=== PATIENT | male | born 1990 | race Caucasian/White ===

== ENCOUNTER 2018-03-01 02:45 | Emergency (ER) | payer BC ==
--- NOTE | 2018-03-01 03:51 | ER Document Report ---
HPI - HPI Patient complains to provider of: Eye discharge, sinus congestion Pain Level: 5 Context: Patient is a 27-year-old male that comes to the emergency department for chief complaint of irritation and discharge from at first the right eye and then the left eye, this is been going on for the past 2 days, patient also reports that he is beginning to get sinus congestion, he was also started to get a sore throat. He denies fever, cough, vomiting, shortness of breath, headache, or any other symptoms at this time. He smokes. He denies any daily medications. - CONSTITUTIONAL Constitutional: REPORTS: Chills - EENT EENT: REPORTS: Sore Throat. DENIES: Ear Pain, Eye problems - NEURO Neurology: REPORTS: Headache - CARDIOVASCULAR Cardiovascular: DENIES: Chest pain - RESPIRATORY Respiratory: DENIES: Trouble Breathing, Coughing Past Medical History - General Information source: Patient - Social History Smoking Status: Current Every Day Smoker Chew tobacco use (# tins/day): No Smoking Education Provided: Yes - <3 min Frequency of alcohol use: Occasional Drug Abuse: None Lives with: Family Family History: Reviewed & Not Pertinent Patient has suicidal ideation: No Patient has homicidal ideation: No - Medical History Medical History: Negative Renal/ Medical History: Denies: Hx Peritoneal Dialysis Past Surgical History: Reports: Hx Orthopedic Surgery - left hip 2000 - Immunizations Hx Diphtheria, Pertussis, Tetanus Vaccination: Yes Vertical Provider Document - CONSTITUTIONAL General Appearance: WD/WN, No Apparent Distress - HEENT HEENT: Atraumatic, Conjuctival Injection - Bilateral conjunctival injection which is mild, there is a small amount of discolored discharge from the right eye, minimal from the left. Normal pupils, no evidence of foreign body, normal eyelids, normal EOMs., Normocephalic. negative: Normal ENT Exam - Minimal tenderness over the frontal sinuses, no maxillary sinus tenderness, minimal nasal congestion, mild erythema of the posterior pharynx with no tonsil enlargement, normal uvula, normal pharyngeal exam otherwise. Normal oral exam. - NECK Neck: Normal Inspection - RESPIRATORY Respiratory: Breath Sounds Normal, No Respiratory Distress - CARDIOVASCULAR Cardiovascular: Regular Rate, Regular Rhythm - GI/ABDOMEN Gastrointestinal: Abdomen Soft, Abdomen Non-Tender - BACK Back: Normal Inspection - MUSCULOSKELETAL/EXTREMETIES Musculoskeletal/Extremeties: MAEW, FROM, Non-Tender - NEURO Level of Consciousness: Awake, Alert, Appropriate - DERM Integumentary: Warm, Dry, No Rash Course - Re-evaluation Re-evalutation: Patient with sinus symptoms that started today. Most likely viral. Unremarkable oropharyngeal exam. Eye exam is consistent with conjunctivitis that has spread to the left eye as well. Unremarkable exam otherwise. Placing on eyedrops, symptom management, discussed follow-up, smoking cessation, return precautions. Patient states understanding and agreement. Provided with work release. - Vital Signs Vital signs: Temp Pulse Resp BP Pulse Ox 98.5 F 106 H 20 133/80 H 98 03/01/18 02:54 03/01/18 02:54 03/01/18 02:54 03/01/18 02:54 03/01/18 02:54 Discharge - Discharge Clinical Impression: Sinus congestion Conjunctivitis Qualifiers: Conjunctivitis type: unspecified Laterality: bilateral Qualified Code(s): H10.9 - Unspecified conjunctivitis Condition: Stable Disposition: HOME, SELF-CARE Additional Instructions: Your examination is consistent with conjunctivitis, pinkeye, use eyedrops as prescribed to completion. He also has indications of a viral upper respiratory/sinus infection, this should resolve slowly with time, take prescribed medications, drink plenty fluids, stop smoking. Follow-up with primary care. Return for any concerning symptoms including severe headache, spiking fever, difficulty breathing, or any other concerning or worsening symptoms. Prescriptions: Fexofenadine HCl [Mayra Allergy] 180 mg PO DAILY #30 tablet Polymyxin B Sulfate/Tmp [Polytrim Oph Soln 10 ml] 1 dose OP ASDIR PRN #1 bottle PRN Reason: Pseudoephedrine HCl [Sudafed 12 Hour] 120 mg PO Q12 PRN #20 tablet.er PRN Reason: Forms: Return to Work
[2018-03-01 03:57] VITALS: BP 126/73
== END 2018-03-01 03:57 | disposition home or self-care (01) ==
LOC: ER 02:45
DX: H10.9 Unspecified conjunctivitis (principal); R09.81 Nasal congestion; J02.9 Acute pharyngitis, unspecified; R51 Headache; F17.200 Nicotine dependence, unspecified, uncomplicated
CPT/HCPCS: 99283

== ENCOUNTER 2019-02-20 20:45 | Emergency (ER) | payer BC ==
[2019-02-20] MEDS ORDERED: RINGERS SOLUTION,LACTATED 1,000 ML IV ONE ×2 (21:01→22:13)
[2019-02-20] MEDS ORDERED: NALOXONE HCL INJ/PF 0.4 MG/1 ML SDV IV ONE (21:03)
[2019-02-20] MEDS ORDERED: NALOXONE HCL INJ/PF 0.4 MG/1 ML SDV ONE (21:03)
--- NOTE | 2019-02-20 21:04 | ER Document Report ---
ED General - General Chief Complaint: Chest Pain Stated Complaint: UNRESPONSIVE Time Seen by Provider: 02/20/19 20:56 Cannot obtain history due to: Uncooperative, Altered mental status Notes: Patient is a 28-year-old male without chronic medical problems who presents by EMS due to altered mental status. Very difficult to ascertain history as patient is unable to provide meaningful history and EMS is not available at the time of my evaluation. 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 Apparently had drank several beers today but no additional drugs. Had been completely fine prior to the onset of his symptoms. TRAVEL OUTSIDE OF THE [place] IN LAST 30 DAYS: No - Related Data Allergies/Adverse Reactions: No Known Allergies Allergy (Verified 02/21/19 01:03) Past Medical History - General Information source: Emergency Med Personnel, [facility] Records Cannot obtain history due to: Uncooperative, Altered mental status - Social History Smoking Status: Current Every Day Smoker Frequency of alcohol use: Occasional Drug Abuse: None Lives with: Spouse/Significant other Family History: Reviewed & Not Pertinent Renal/ Medical History: Denies: Hx Peritoneal Dialysis Past Surgical History: Reports: Hx Orthopedic Surgery - left hip 2000 - Immunizations Hx Diphtheria, Pertussis, Tetanus Vaccination: Yes Review of Systems - Review of Systems -: Yes ROS unobtainable due to patient's medical condition Physical Exam - Vital signs Vitals: Resp BP Pulse Ox 13 142/90 H 98 02/20/19 20:55 02/20/19 20:55 02/20/19 20:55 Interpretation: Normal Notes: PHYSICAL EXAMINATION: GENERAL: Lethargic, altered, minimally responsive HEAD: Atraumatic, normocephalic. EYES: Pupils equal round and reactive to light, extraocular movements intact, sclera anicteric, conjunctiva are normal. ENT: nares patent, oropharynx clear without exudates. Moderately dry mucous membranes. NECK: supple without lymphadenopathy LUNGS: Breath sounds clear to auscultation bilaterally and equal. No wheezes rales or rhonchi. HEART: Regular tachycardia without murmurs ABDOMEN: Soft, nontender, normoactive bowel sounds. No guarding, no rebound. No masses appreciated. EXTREMITIES: no pitting or edema. No cyanosis. NEUROLOGICAL: No focal neurological deficits. Moves all extremities spontaneously and on command. Unable to follow strength testing commands PSYCH: Lethargic, oriented only to person. SKIN: Warm, Dry, normal turgor, no rashes or lesions noted. Course - Re-evaluation Re-evalutation: 02/20/19 21:01 Patient presents quite lethargic, will wake up to repeated physical or loud verbal stimulation and then falls right back off to sleep. It takes quite a bit of effort to get the patient answer even very basic questions such as his name. He is able to follow commands in all 4 extremities but is unable to comply with formal strength testing. He has no focal deficits on initial exam. No evidence of trauma on exam. History is very limited as the patient cannot provide any but by EMS the patient apparently had been drinking today, "2 beers", and then apparently began complaining of chest pain and slumped to the ground per family who was present but are not available for history taking at this time. Patient's initial vitals are within acceptable limits, mildly hypertensive at 151 systolic, heart rate 93, saturations at 94% on room air. Patient is in guarded condition given undifferentiated nature of his altered mental status and possible syncopal event prior to presentation. I have reassessed the patient on 2 occasions up to this point and his exam remains relatively unchanged. Picture not consistent with narcotic overdose, pupils are not pinpoint, he is not having hypoventilation, but I will administer a dose of naloxone to exclude definitively that this could be part of the picture. Will also obtain labs, CT head and reassess. 02/20/19 21:39 I continue to reassess the patient on 2 separate occasions. Narcan did not provide any relief to the patient's altered mental status. It is very unclear to me what is exactly going on at this time. The patient's mental status changes are very unusual pattern. For example the patient cannot tell me the city that we are currently located in, he likewise cannot tell me the president is, cannot tell me that were in the hospital, but when the nurse tried to administer naloxone to the patient he sat up and asked what medication it was and pulled his arm away when she attempted to administer it. Although this could seem like the patient was trying to avoid administration of this medication because he is using narcotics I do not think that this is the case as it did not do anything to his mental status and his was at the bedside is quite adamant that the patient never uses any kind of drugs of any kind and gets drug tested regularly for his place of work. The patient continues to be nonfocal on his neurologic exam moving all his remedies on command and he has symmetric strength throughout. However he has global confusion at this point has repetitive questioning. CT scan of his head is pending and I have asked that he goes over as soon as possible. Low clinical suspicion for an infectious encephalitis or meningitis as the patient was apparently grilling, and showing a nice day with his family, and then apparently sat down in a chair and stopped responding to general conversation that was going on. When family tapped his shoulder he would open his eyes and breathe very deeply and then almost go back off to sleep. At no point was any kind of tonic-clonic activity noted. The patient would briefly talk when he would wake up or say "what". This would be inconsistent with absent seizures with postictal phase. Very unclear diagnostic picture at this time. 02/20/19 21:59 CT head without contrast unremarkable. CT the head with contrast is pending. Patient is becoming increasingly agitated. 02/20/19 22:11 Documentation delayed as I was at patient's bedside continues the. Patient became extremely agitated, not redirectable, no impact of 4 mg of midazolam IV. Was requiring 6 security guards to maintain patient on the bed. Intramuscular ketamine 500 mg administered. Once the patient is calm and sedated he will be taken over to CT and have a CT with contrast. Carboxy hemoglobin will likewise be added given that he was grilling. 02/21/19 01:13 Patient's mentation has gradually improved. He continues to be quite delayed in his responses to questions but is much more closer to normal orientation than baseline. CSF studies do not demonstrate significant leukocytosis, white count of 4, traumatic tap. Gram stain negative. Will consult with neurology at [facility] 02/21/19 01:44 I did consult with neurology at [facility] Dr. Wick who advises MRI of the brain in the morning that if the patient's mental status improving that he does not require transfer to [facility] at this time. Will discuss with the hospitalist for observation 02/21/19 03:02 Patient has declined observation. States that he would like to go home and to follow-up with his primary doctor. His mother and are both at the bedside and confirmed that the patient is completely at his baseline. He is alert, oriented, has no level of confusion at this time. Is able to state to me that I have a concern that he could have had a focal seizure, but I advised that he stays in the hospital for MRI of his brain and to determine any further a ppropriate testing that may be indicated based on his repeat exam in the morning. He states understanding that this has been formally recommended by the neurologist who I consulted with at [facility]. He states he would like to go home as he would like to rest and eat at home. He states that he likewise would feel more comfortable following up as an outpatient for these tests. He has capacity at this time. This conversation was witnessed by his and mother both of whom are comfortable with the plan. Patient has had complete resolution of his altered mental status as noted above. He will be discharged at his request. - Vital Signs Vital signs: Temp Pulse Resp BP Pulse Ox 18 139/93 H 96 02/21/19 02:01 02/21/19 02:01 02/21/19 02:01 - Laboratory Result Diagrams: 02/20/19 20:15 02/20/19 20:15 Laboratory results interpreted by me: 02/20/19 02/20/19 02/20/19 20:15 20:15 22:43 WBC 11.6 H RDW 14.2 H Carboxyhemoglobin 3.1 H Potassium 3.5 L Glucose 130 H CSF RBC CSF Total Protein 02/20/19 02/20/19 23:08 23:08 WBC RDW Carboxyhemoglobin Potassium Glucose CSF RBC 2950 H CSF Total Protein 88 H - Diagnostic Test Radiology reviewed: Image reviewed, Reports reviewed Radiology results interpreted by me: 02/21/19 02:30 CT head: No acute intercranial bleed or mass - EKG Interpretation by Me Additional EKG results interpreted by me: 02/21/19 02:31 Sinus tachycardia, rate 107, no ST elevations or depressions. QTC is 454. Procedures - Conscious Sedation Conscious sedation Consent obtained: No - Emergent Indication: Lumbar puncture Prior complications: Procedural sedation Normal healthy pt.: P1. - ASA Classification Airway Evaluation: Obese Mallampati Classification: Class 1 Used during procedure: Suction available, IV access obtained, Pulse ox on pt., aadc plans staff officer on pt. Medications administered: Ketamine Reversal agents: None I personally performed/intraservice time: Sedation, Procedure, 30 min or less Complications: No - Lumbar Puncture Lumbar puncture Consent obtained: Yes Lumbar puncture pre-procedure: Sterile PPE donned, Chloraprep applied, Sterile drapes applied Patient position: Lying Needle size: 22 Lumbar puncture location: L4-5 Anesthetic type: 1% Lidocaine mL's of anesthetic: 2 Amount/type of drainage: 1.5 cc bloody/clear Number of attempts: 1 Complications: No Critical Care Note - Critical Care Note Total time excluding time spent on procedures (mins): 95 Comments: Critical care time spent obtaining history from patient or surrogate, discussions with consultants, development of treatment plan with patient or surrogate, evaluation of patient's response to treatment, examination of patient, ordering and performing treatments and interventions, ordering and review of laboratory studies, re-evaluation of patient's condition, ordering and review of radiographic studies and review of old charts Discharge - Discharge Clinical Impression: Agitation, Delirium Altered mental status Qualifiers: Altered mental status type: delirium Qualified Code(s): R41.0 - Disorientation, unspecified Chest pain Qualifiers: Chest pain type: unspecified Qualified Code(s): R07.9 - Chest pain, unspecified Condition: Stable Disposition: HOME, SELF-CARE Additional Instructions: As we discussed, I do not know exactly what caused her symptoms today. The only diagnosis that I can think it would be a potential seizure with a postictal p hase thereafter. Your evaluation today including a CT of your head with and without contrast, lumbar puncture, and broad laboratory evaluations are all unremarkable. I strongly encourage you to follow-up for an MRI of your head and EEG as an outpatient. Please return to the emergency department immediately if you have recurrence of your symptoms, severe headache, fever greater than 100.4 F, weakness, numbness, pass out, or have any other symptoms that are worrisome to you. As we discussed your going home today upon your request as we had desired to hospitalize you to complete the MRI as an inpatient and ensure that you continue to improve clinically.
[2019-02-20] MEDS ORDERED: NALOXONE HCL INJ 2 MG/2 ML DISP.SYRIN ONE (21:12)
[2019-02-20 21:31] LABS: ABSOLUTE BASOPHILS # (AUTO) 0.1 10^3/uL (0.0-0.2); ABSOLUTE EOSINOPHILS # (AUTO) 0.3 10^3/uL (0.0-0.6); ABSOLUTE LYMPHOCYTES (AUTO) 3.1 10^3/uL (0.5-4.7); ABSOLUTE MONOCYTES (AUTO) 0.7 10^3/uL (0.1-1.4); ABSOLUTE NEUT (AUTO) 7.4 10^3/uL (1.7-8.2); BASOPHILS % (AUTO) 0.5 % (0-2); HEMATOCRIT 43.8 % (37.9-51.0); HEMOGLOBIN 14.7 g/dL (13.5-17.0); MEAN CORPUSCULAR HEMOGLOBIN 28.5 pg (27.0-33.4); MEAN CORPUSCULAR HGB CONC 33.6 g/dL (32.0-36.0); MEAN CORPUSCULAR VOLUME 85 fl (80-97); MONOCYTES % (AUTO) 5.9 % (3-13); PLATELET COUNT 246 10^3/uL (150-450); RED BLOOD COUNT 5.16 10^6/uL (4.35-5.55); RED CELL DISTRIBUTION WIDTH 14.2 % (11.5-14.0); SEGMENTED NEUTROPHILS % (AUTO) 63.6 % (42-78); TOTAL CELLS COUNTED % (AUTO) 100 %; WHITE BLOOD COUNT 11.6 10^3/uL (4.0-10.5)
[2019-02-20 21:37] LABS: APPEARANCE,URINE CLEAR; BILIRUBIN,URINE NEGATIVE (NEGATIVE); COLOR,URINE STRAW; GLUCOSE, URINE NEGATIVE (NEGATIVE); KETONES,URINE NEGATIVE (NEGATIVE); LEUKOCYTE ESTERASE,URINE NEGATIVE (NEGATIVE); NITRITE,URINE NEGATIVE (NEGATIVE); PROTEIN,URINE NEGATIVE (NEGATIVE); URINE SPECIFIC GRAVITY 1.008; UROBILINOGEN,URINE NEGATIVE mg/dL (<2.0)
[2019-02-20 21:40] LABS: ALANINE AMINOTRANSFERASE 39 U/L (21-72); ALBUMIN 4.2 g/dL (3.5-5.0); ALCOHOL 30 mg/dL (NONE DETECTED); ALKALINE PHOSPHATASE 68 U/L (38-126); ANION GAP 12 (5-19); ASPARTATE AMINO TRANSFERASE 30 U/L (17-59); BILIRUBIN,DIRECT 0.2 mg/dL (0.0-0.4); BILIRUBIN,TOTAL 0.2 mg/dL (0.2-1.3); BLOOD UREA NITROGEN 10 mg/dL (7-20); CALCIUM 9.3 mg/dL (8.4-10.2); CARBON DIOXIDE 23 mmol/L (22-30); CHLORIDE 105 mmol/L (98-107); CREATINE KINASE 159 U/L (55-170); GLUCOSE 130 mg/dL (75-110); POTASSIUM 3.5 mmol/L (3.6-5.0); SODIUM 140.4 mmol/L (137-145); TOTAL PROTEIN 6.9 g/dL (6.3-8.2)
[2019-02-20 21:40] LABS: URINE AMPHETAMINES SCREEN NEGATIVE; URINE BARBITURATES SCREEN NEGATIVE; URINE BENZODIAZEPINES SCREEN NEGATIVE; URINE COCAINE SCREEN NEGATIVE; URINE MARIJUANA (THC) SCREEN NEGATIVE; URINE METHADONE SCREEN NEGATIVE; URINE PHENCYCLIDINE SCREEN NEGATIVE
[2019-02-20 21:51] LABS: CREATINE KINASE MB 1.16 ng/mL (<4.55)
[2019-02-20 21:52] LABS: TROPONIN I < 0.012 ng/mL
[2019-02-20] MEDS ORDERED: MIDAZOLAM 2 MG/2 ML INJ ONE ×2 (21:57→22:00)
[2019-02-20] MEDS ORDERED: MIDAZOLAM 2 MG/2 ML INJ IV ONE (21:59)
[2019-02-20] MEDS ORDERED: KETAMINE HCL INJ 500 MG/10 ML VIAL ONE ×2 (22:02→22:44)
[2019-02-20] MEDS ORDERED: KETAMINE HCL INJ 500 MG/10 ML VIAL IM ONE (22:13)
--- NOTE | 2019-02-20 22:18 | RADIOLOGY REPORT (SQ) ---
EXAM DESCRIPTION: CT HEAD WITHOUT IV CONTRAST COMPLETED DATE/TME: 02/20/2019 21:00 CLINICAL HISTORY: 28 years, Male, ams COMPARISON: None. TECHNIQUE: Axial images of the head were performed without the use of intravenous contrast, with sagittal and coronal reformatted images. Images stored on PACS. All CT scanners at this facility use dose modulation, iterative reconstruction, and/or weight based dosing when appropriate to reduce radiation dose to as low as reasonably achievable (ALARA). [facility]: Dose Right [facility]: CareDose [facility]: Dose Right [facility]: Teradose 4D [facility]: [employer] Technologies LIMITATIONS: None. FINDINGS: No evidence of acute hemorrhage or infarct. No evidence of mass or hydrocephalus. There is mild left maxillary sinus disease. IMPRESSION: No acute finding. TECHNICAL DOCUMENTATION: Quality ID # [id number]: Final reports with documentation of one or more dose reduction techniques (e.g., Automated exposure control, adjustment of the mA and/or kV according to patient size, use of iterative reconstruction technique) copyright 2011 [employer]- All Rights Reserved
[2019-02-20 22:29] LABS: INTERNATIONAL RATION (INR) 0.93
[2019-02-20 22:30] LABS: PARTIAL THROMBOPLASTIN TIME 34.6 SEC (23.5-35.8)
[2019-02-20] MEDS ORDERED: LIDOCAINE 1% INJ-PF (10 MG/ML) 30 ML SDV ONE (22:46)
--- NOTE | 2019-02-20 22:54 | RADIOLOGY REPORT (SQ) ---
EXAM DESCRIPTION: RadLex: CT HEAD WITH IV CONTRAST CLINICAL HISTORY: 28 years Male; eval mass lesion, abscess? COMPLETED: 02/20/2019 2229 TECHNIQUE: CT head with contrast using 50 mL Omnipaque [address] scans at this facility use dose modulation, iterative reconstruction, and/or weight based dosing when appropriate to reduce radiation dose to as low as reasonably achievable. COMPARISON: Noncontrast CT head 02/20/2019 at 2141 FINDINGS: No enhancing lesions. No acute edema or mass effect. IMPRESSION: 1. Normal postcontrast CT of the brain
[2019-02-20 22:57] LABS: VENOUS BLOOD BASE EXCESS -0.4 mmol/L; VENOUS BLOOD HCO3 24.4 mmol/L (20-32); VENOUS BLOOD PCO2 40.9 mmHg (35-63); VENOUS BLOOD PH 7.39 (7.30-7.42)
--- NOTE | 2019-02-20 23:13 | EKG REPORT ---
SEVERITY:- BORDERLINE ECG - SINUS TACHYCARDIA INFERIOR Q WAVES, PROBABLY NORMAL VARIATION : Confirmed by: Filipe Phelps MD 20-Feb-2019 23:12:52
[2019-02-21 00:02] LABS: APPEARANCE TUBE 1 HAZY; APPEARANCE TUBE 2 HAZY; COLOR TUBE 1 RED; COLOR TUBE 2 RED; CSF TUBE NUMBER 1
[2019-02-21 00:03] LABS: CSF TOTAL VOLUME 1.1 CC; VOLUME TUBE 1 0.6 CC; VOLUME TUBE 2 0.5 CC
[2019-02-21 00:12] LABS: RED BLOOD CELL,CSF 2950 /uL (0-10)
[2019-02-21] MEDS ORDERED: MIDAZOLAM 2 MG/2 ML INJ IV ONE (00:22)
[2019-02-21] MEDS ORDERED: MIDAZOLAM 2 MG/2 ML INJ ONE (00:23)
[2019-02-21 00:24] LABS: GLUCOSE,CSF 64 mg/dL (40-70); PROTEIN,CSF 88 mg/dL (12-60); WHITE BLOOD CELL,CSF 4 /uL (0-5)
[2019-02-21 02:10] VITALS: BP 139/93
== END 2019-02-21 03:05 | disposition home or self-care (01) ==
LOC: ER 20:45
DX: R41.0 Disorientation, unspecified (principal); R07.9 Chest pain, unspecified; R45.1 Restlessness and agitation; F17.200 Nicotine dependence, unspecified, uncomplicated
CPT/HCPCS: 36415; 70450; 70460; 80053; 80307; 81001; 82375; 82550; 82553; 82803; 82945; 84157; 84484; 85025; 85610; 85730; 87070; 87205; 87252; 89050; 93005; 93010; 99291; 99292; 99152

== ENCOUNTER 2019-02-22 14:59 | Emergency (ER) | payer BC ==
[2019-02-22 15:17] VITALS: BP 154/86
--- NOTE | 2019-02-22 23:27 | EKG REPORT ---
SEVERITY:- NORMAL ECG - SINUS RHYTHM : Confirmed by: Luisa Luo MD 22-Feb-2019 23:26:44
== END 2019-02-22 18:49 | disposition left against medical advice (07) ==
LOC: ER 14:59
DX: Z53.21 Procedure and treatment not carried out due to patient leaving prior to being seen by health care provider (principal)
CPT/HCPCS: 93005; 93010

== ENCOUNTER 2019-03-10 10:54 | Emergency (ER) | payer BC ==
--- NOTE | 2019-03-10 11:16 | ER Document Report ---
ED Medical Screen (RME) - General Chief Complaint: Chest Pain Stated Complaint: SHORTNESS OF BREATH/CHEST PAIN Time Seen by Provider: 03/10/19 11:07 Primary Care Provider: DARA WHITLEY FNP [Primary Care Provider] - Follow up as needed Mode of Arrival: Ambulatory Information source: Patient TRAVEL OUTSIDE OF THE [place] IN LAST 30 DAYS: No - HPI Notes: 03/10/19 11:16 Patient is a 28 yr old male that presents to the emergency department for chief complaint of chest pain that started yesterday, substernal and constant, states he does have a sharp pain that lasts for a few seconds that started this morning, reports he has had shortness of breath on exertion that started yesterday as well. Patient is a pack-a-day smoker, patient was recently seen in the ED 3 weeks ago for chest pain, had echo impatient at that time. Echocardiogram showed valve dysfunction, he does have a cardiology follow-up appt on March 24, 2019. Patient denies any foot/ankle swelling. States worse with time. Denies any new medications with her travel. Has not taken anything [id number]. Does not take a baby aspirin. Patient also [facility] ROS: Other than noted above, the 12 point review of systems was reviewed with the patient and were negative, all pertinent findings are included in the HPI. PHYSICAL EXAMINATION: Vital signs reviewed. GENERAL: Well-appearing, well-nourished and in no acute distress. HEAD: Atraumatic, normocephalic. NECK: Normal range of motion CV: Heart regular rate and rhythm LUNGS: No respiratory distress ABD: generalized abd pain Musculoskeletal: Normal range of motion NEUROLOGICAL: Normal speech PSYCH: Normal mood, normal affect. MDM: Patient seen and examined for rapid initial assessment. Vital signs reviewed. A comprehensive ED assessment and evaluation of the patient, analysis of test results and completion of the medical decision making process will be conducted by additional ED providers. *Note is created using voice recognition software and may contain spelling, syntax or grammatical errors. 03/10/19 11:17 - Related Data Allergies/Adverse Reactions: No Known Allergies Allergy (Verified 03/10/19 11:09) Past Medical History Renal/ Medical History: Denies: Hx Peritoneal Dialysis Past Surgical History: Reports: Hx Orthopedic Surgery - left hip 2000 - Immunizations Hx Diphtheria, Pertussis, Tetanus Vaccination: Yes Doctor's Discharge - Discharge Referrals: DARA WHITLEY FNP [Primary Care Provider] - Follow up as needed
[2019-03-10] MEDS ORDERED: ASPIRIN 81 MG TABLET, CHEWABLE PO ONE (11:17)
[2019-03-10 11:40] LABS: ABSOLUTE BASOPHILS # (AUTO) 0.1 10^3/uL (0.0-0.2); ABSOLUTE EOSINOPHILS # (AUTO) 0.4 10^3/uL (0.0-0.6); ABSOLUTE LYMPHOCYTES (AUTO) 2.5 10^3/uL (0.5-4.7); ABSOLUTE MONOCYTES (AUTO) 0.7 10^3/uL (0.1-1.4); ABSOLUTE NEUT (AUTO) 7.8 10^3/uL (1.7-8.2); BASOPHILS % (AUTO) 0.5 % (0-2); EOSINOPHILS % (AUTO) 3.1 % (0-6); HEMOGLOBIN 15.2 g/dL (13.5-17.0); LYMPHOCYTES % (AUTO) 22.2 % (13-45); MEAN CORPUSCULAR HEMOGLOBIN 28.3 pg (27.0-33.4); MEAN CORPUSCULAR HGB CONC 33.8 g/dL (32.0-36.0); MEAN CORPUSCULAR VOLUME 84 fl (80-97); PLATELET COUNT 261 10^3/uL (150-450); RED BLOOD COUNT 5.37 10^6/uL (4.35-5.55); RED CELL DISTRIBUTION WIDTH 14.5 % (11.5-14.0); SEGMENTED NEUTROPHILS % (AUTO) 68.2 % (42-78); TOTAL CELLS COUNTED % (AUTO) 100 %; WHITE BLOOD COUNT 11.4 10^3/uL (4.0-10.5)
[2019-03-10 11:42] LABS: INTERNATIONAL RATION (INR) 0.97; PROTHROMBIN TIME 12.9 SEC (11.4-15.4)
[2019-03-10 11:56] LABS: ALANINE AMINOTRANSFERASE 39 U/L (21-72); ALBUMIN 4.5 g/dL (3.5-5.0); ALKALINE PHOSPHATASE 70 U/L (38-126); ANION GAP 9 (5-19); ASPARTATE AMINO TRANSFERASE 30 U/L (17-59); BILIRUBIN,DIRECT 0.2 mg/dL (0.0-0.4); BILIRUBIN,TOTAL 0.5 mg/dL (0.2-1.3); BLOOD UREA NITROGEN 13 mg/dL (7-20); CALCIUM 9.5 mg/dL (8.4-10.2); CARBON DIOXIDE 25 mmol/L (22-30); CHLORIDE 108 mmol/L (98-107); CREATINE KINASE 313 U/L (55-170); GLUCOSE 135 mg/dL (75-110); POTASSIUM 3.7 mmol/L (3.6-5.0); SODIUM 142.1 mmol/L (137-145); TOTAL PROTEIN 7.5 g/dL (6.3-8.2)
--- NOTE | 2019-03-10 12:01 | RADIOLOGY REPORT (SQ) ---
EXAM DESCRIPTION: CHEST SINGLE VIEW COMPLETED DATE/TIME: 03/10/2019 11:45 am REASON FOR STUDY: Chest Pain COMPARISON: 2013 NUMBER OF VIEWS: One view. TECHNIQUE: Single frontal radiographic view of the chest acquired. LIMITATIONS: None. FINDINGS: LUNGS AND PLEURA: No opacities, masses or pneumothorax. No pleural effusion. MEDIASTINUM AND HILAR STRUCTURES: No masses. Contour normal. HEART AND VASCULAR STRUCTURES: Heart normal in size. Normal vasculature. BONES: No acute findings. HARDWARE: None in the chest. OTHER: No other significant finding. IMPRESSION: NO SIGNIFICANT RADIOGRAPHIC FINDING IN THE CHEST. TECHNICAL DOCUMENTATION: JOB ID: [id number] [employer]- All Rights Reserved Reading location - IP/workstation name: [email or web address]
[2019-03-10 12:08] LABS: CREATINE KINASE MB 0.98 ng/mL (<4.55)
[2019-03-10 12:14] LABS: TROPONIN I < 0.012 ng/mL
[2019-03-10 12:15] LABS: NT PRO BNP < 11 pg/mL (<125)
[2019-03-10] MEDS ORDERED: NORMAL SALINE 1000 ML 1,000 ML IV ONE (13:28)
[2019-03-10] MEDS ORDERED: IPRATROPIUM/ALBUTEROL 0.5-2.5 MG/3 ML AMPUL NEB ONE (14:46)
[2019-03-10 15:29] VITALS: BP 131/69
--- NOTE | 2019-03-10 15:38 | ER Document Report ---
ED Cardiac - General Chief Complaint: Chest Pain Stated Complaint: SHORTNESS OF BREATH/CHEST PAIN Time Seen by Provider: 03/10/19 11:07 Primary Care Provider: DARA WHITLEY FNP [Primary Care Provider] - Follow up as needed Mode of Arrival: Ambulatory TRAVEL OUTSIDE OF THE [place] IN LAST 30 DAYS: No - Related Data Allergies/Adverse Reactions: No Known Allergies Allergy (Verified 03/10/19 11:09) Past Medical History - General Information source: Patient - Social History Smoking Status: Current Every Day Smoker Chew tobacco use (# tins/day): No Frequency of alcohol use: Occasional Family History: Reviewed & Not Pertinent Patient has suicidal ideation: No Patient has homicidal ideation: No Renal/ Medical History: Denies: Hx Peritoneal Dialysis Past Surgical History: Reports: Hx Orthopedic Surgery - left hip 2000 - Immunizations Hx Diphtheria, Pertussis, Tetanus Vaccination: Yes Physical Exam - Vital signs Vitals: Resp Pulse Ox 24 H 94 03/10/19 11:40 03/10/19 11:40 Course - Vital Signs Vital signs: Temp Pulse Resp BP Pulse Ox 98.4 F 17 131/69 H 97 03/10/19 12:21 03/10/19 15:02 03/10/19 15:02 03/10/19 15:02 - Laboratory Result Diagrams: 03/10/19 11:20 03/10/19 11:20 Laboratory results interpreted by me: 03/10/19 03/10/19 11:20 11:20 WBC 11.4 H RDW 14.5 H Chloride 108 H Glucose 135 H Creatine Kinase 313 H 03/10/19 15:35 Labs- Entire Visit 03/10/19 03/10/19 03/10/19 11:20 11:20 11:20 WBC 11.4 H RBC 5.37 Hgb 15.2 Hct 45.0 MCV 84 MCH 28.3 MCHC 33.8 RDW 14.5 H Plt Count 261 Seg Neutrophils % 68.2 Lymphocytes % 22.2 Monocytes % 6.0 Eosinophils % 3.1 Basophils % 0.5 Absolute Neutrophils 7.8 Absolute Lymphocytes 2.5 Absolute Monocytes 0.7 Absolute Eosinophils 0.4 Absolute Basophils 0.1 PT 12.9 INR 0.97 D-Dimer Sodium 142.1 Potassium 3.7 Chloride 108 H Carbon Dioxide 25 Anion Gap 9 BUN 13 Creatinine 0.90 Est GFR ( Amer) > 60 Est GFR (Non-Af Amer) > 60 Glucose 135 H Calcium 9.5 Total Bilirubin 0.5 Direct Bilirubin 0.2 Neonat Total Bilirubin Not Reportable Neonat Direct Bilirubin Not Reportable Neonat Indirect Bili Not Reportable AST 30 ALT 39 Alkaline Phosphatase 70 Creatine Kinase 313 H CK-MB (CK-2) Troponin I NT-Pro-B Natriuret Pep Total Protein 7.5 Albumin 4.5 03/10/19 03/10/19 11:20 11:20 WBC RBC Hgb Hct MCV MCH MCHC RDW Plt Count Seg Neutrophils % Lymphocytes % Monocytes % Eosinophils % Basophils % Absolute Neutrophils Absolute Lymphocytes Absolute Monocytes Absolute Eosinophils Absolute Basophils PT INR D-Dimer 0.27 Sodium Potassium Chloride Carbon Dioxide Anion Gap BUN Creatinine Est GFR ( Amer) Est GFR (Non-Af Amer) Glucose Calcium Total Bilirubin Direct Bilirubin Neonat Total Bilirubin Neonat Direct Bilirubin Neonat Indirect Bili AST ALT Alkaline Phosphatase Creatine Kinase CK-MB (CK-2) 0.98 Troponin I < 0.012 NT-Pro-B Natriuret Pep < 11 Total Protein Albumin - Diagnostic Test Radiology reviewed: Image reviewed, Reports reviewed Radiology results interpreted by tn: 03/10/19 15:34 Chest X-Ray 03/10/19 00:00 IMPRESSION: NO SIGNIFICANT RADIOGRAPHIC FINDING IN THE CHEST. - EKG Interpretation by Sd EKG shows normal: Sinus rhythm Rate: Normal - 96 bpm, no stemi, reviewed with dr banrard, unchanged from prior Rhythm: No: SVT, Arrthymia, A.Fib, A.Flutter, V.Tach, V. Fib [place]/QRS: No: RBBB, LBBB When compared to previous EKG there are: No significant change Additional EKG results interpreted by tn: 03/10/19 15:36 inferior q waves, probable normal variant per ekg read Discharge - Discharge Clinical Impression: Chest pain Qualifiers: Chest pain type: unspecified Qualified Code(s): R07.9 - Chest pain, unspecified Condition: Good Disposition: HOME, SELF-CARE Instructions: Chest Pain of Unclear Cause ([facility]) Additional Instructions: Follow-up with your regional education manager in 1 to 2 days. Return for any worsening symptoms. Stop smoking. Eat and drink at regular intervals. Referrals: DARA WHITLEY FNP [Primary Care Provider] - Follow up as needed
--- NOTE | 2019-03-10 17:55 | EKG REPORT ---
SEVERITY:- BORDERLINE ECG - SINUS RHYTHM INFERIOR Q WAVES, PROBABLY NORMAL VARIATION : Confirmed by: Essence Tan 10-Mar-2019 17:55:16
== END 2019-03-10 16:00 | disposition home or self-care (01) ==
LOC: ER 10:54
DX: R07.9 Chest pain, unspecified (principal); R06.02 Shortness of breath; F17.200 Nicotine dependence, unspecified, uncomplicated
CPT/HCPCS: 93005; 99285; 96360; 36415; 82553; 82550; 85025; 85610; 80053; 84484; 85379; 83880; 71045; 93010; J7030; J7620

== ENCOUNTER 2019-06-29 10:46 | Day surgery (SDC) | payer BC ==
[~2019-06-29 10:46] MED LIST: CEFAZOLIN SODIUM 2 GM in DEXTROSE 5%-WATER 100 ML IV PRN; DEXAMETHASONE SOD PHOSPHATE INJ 4 MG/1 ML VIAL ONE; FENTANYL CITRATE INJ/PF 100 MCG/2 ML AMPUL ONE; MIDAZOLAM 2 MG/2 ML INJ ONE; ONDANSETRON HCL INJ/PF 4 MG/2 ML SDV ONE; PROPOFOL INJ 200 MG/20 ML VIAL IV ONE; SUCCINYLCHOLINE CHLORIDE INJ 200 MG/10 ML VIAL ONE
[2019-06-29 11:34] LABS: HEMATOCRIT 44.7 % (37.9-51.0); MEAN CORPUSCULAR HEMOGLOBIN 28.3 pg (27.0-33.4); MEAN CORPUSCULAR HGB CONC 33.4 g/dL (32.0-36.0); MEAN CORPUSCULAR VOLUME 85 fl (80-97); PLATELET COUNT 221 10^3/uL (150-450); RED BLOOD COUNT 5.28 10^6/uL (4.35-5.55); RED CELL DISTRIBUTION WIDTH 14.5 % (11.5-14.0); WHITE BLOOD COUNT 8.1 10^3/uL (4.0-10.5)
[2019-06-29] MEDS ORDERED: ALBUTEROL SULFATE 0.083% NEB 2.5 MG/3 ML AMPUL NEB ONE (11:48)
[2019-06-29 11:56] LABS: ANION GAP 17 (5-19); BLOOD UREA NITROGEN 11 mg/dL (7-20); CALCIUM 9.6 mg/dL (8.4-10.2); CARBON DIOXIDE 28 mmol/L (22-30); CHLORIDE 96 mmol/L (98-107); GLUCOSE 87 mg/dL (75-110); POTASSIUM 4.4 mmol/L (3.6-5.0)
[2019-06-29] MEDS ORDERED: LIDOCAINE 0.5% INJ-PF (5 MG/ML) 50 ML SDV ONE (13:06)
[2019-06-29] MEDS ORDERED: DIAZEPAM 5 MG TABLET ONE (13:06)
[2019-06-29] MEDS ORDERED: FENTANYL CITRATE INJ/PF 250 MCG/5 ML AMPULE ONE (13:23)
[2019-06-29] MEDS ORDERED: ONDANSETRON HCL INJ/PF 4 MG/2 ML SDV IV PRN ×2 (14:37→17:01)
[2019-06-29] MEDS ORDERED: MORPHINE SULFATE 10 MG/ML INJ IV PRN (14:37)
[2019-06-29] MEDS ORDERED: DIPHENHYDRAMINE HCL 50 MG/ML VIAL IV PRN (14:37)
[2019-06-29] MEDS ORDERED: MEPERIDINE HCL/PF INJ 25 MG/1 ML DISP.SYRIN IV PRN (14:37)
[2019-06-29] MEDS ORDERED: PROMETHAZINE HCL INJ 25 MG/1 ML VIAL IV PRN ×2 (14:37)
[2019-06-29] MEDS ORDERED: FENTANYL CITRATE INJ/PF 100 MCG/2 ML AMPUL IV PRN ×3 (14:37)
[2019-06-29] MEDS ORDERED: BUPIVACAINE HCL 0.5 % INJ/PF 30 ML SDV ONE (16:52)
[2019-06-29] MEDS ORDERED: HYDROMORPHONE HCL INJ/PF 2 MG/ML AMPULE IV PRN (17:01)
[2019-06-29] MEDS ORDERED: OXYCODONE-ACETAMINOPHEN 5-325 MG TABLET PO PRN (17:01)
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
[2019-06-29] MEDS ORDERED: ACETAMINOPHEN 1,000 MG/100 ML RTUPB IV ONE ×2 (17:49→18:30)
[2019-06-29] MEDS ORDERED: KETOROLAC TROMETHAMINE INJ/PF 30 MG/1 ML SDV ONE (17:49)
[2019-06-29] MEDS ORDERED: KETOROLAC TROMETHAMINE INJ/PF 30 MG/1 ML SDV IV ONE (18:30)
[2019-06-29 19:28] VITALS: BP 124/73
== END 2019-06-29 19:32 | disposition home or self-care (01) ==
LOC: OROUT 10:46
PROVIDERS: ATTEND Orthopaedic Surgery
DX: S64.11XA Injury of median nerve at wrist and hand level of right arm, initial encounter (principal); S61.411A Laceration without foreign body of right hand, initial encounter; W32.0XXA Accidental handgun discharge, initial encounter; M65.841 Other synovitis and tenosynovitis, right hand; M25.541 Pain in joints of right hand; I10 Essential (primary) hypertension; M79.644 Pain in right finger(s); M24.549 Contracture, unspecified hand
CPT/HCPCS: 26442 ×9; 64721; 11043; 36415; 85027; 80048; 01810; C9250; C9353; J2250; J3490 ×2; J0690; J1100; J3010 ×2; J1885; J0330; J2405; J7060; J2704; J0131; 1810